=== PATIENT | female | born 1975 | race Caucasian/White ===

== ENCOUNTER 2020-05-04 18:23 | Emergency (ER) | payer OTHER ==
[2020-05-04 20:09] LABS: Absolute Lymphocytes (CBC) 1.6 K/uL (0.7-4.9); Basophils % 1.1 % (0-1.3); Hematocrit 45.3 % (36.0-45.0); Lymphocytes % 23.3 % (15.3-44.8); MPV 10.2 fL (7.6-11.3); RBC Red Blood Cell Count 5.03 M/uL (3.86-4.86)
[2020-05-04 20:12] LABS: Protime INR 0.97
--- NOTE | 2020-05-04 20:20 | RAD REPORT ---
EXAM DESCRIPTION: RAD - Chest Single View - 05/04/2020 7:28 pm CLINICAL HISTORY: PALPITATIONS COMPARISON: None TECHNIQUE: AP portable chest image was obtained 05/04/2020 7:28 pm . FINDINGS: Lungs are clear. Heart and vasculature are normal. No measurable pleural effusion and no p neumothorax. No acute bony abnormality seen. No acute aortic findings suspected. IMPRESSION: No acute cardiopulmonary process.
[2020-05-04 20:39] LABS: ALT/SGPT 28 U/L (12-78); AST/SGOT 19 U/L (15-37); Alkaline Phosphatase 73 U/L (45-117); BUN Blood Urea Nitrogen 10 mg/dL (7-18); Bicarbonate 25 mmol/L (21-32); Bilirubin Direct 0.2 mg/dL (0-0.2); Bilirubin Total 0.9 mg/dL (0.2-1.0); Glucose Level 97 mg/dL (74-106); NT PRO-BNP 48 pg/mL (<125); Potassium 3.6 mmol/L (3.5-5.1); Protein, Total 7.7 g/dL (6.4-8.2); Sodium Level 139 mmol/L (136-145); Troponin (Emerg Dept Use Only) < 0.02 ng/mL (0.0-0.045)
[2020-05-04 21:07] LABS: Urine Blood 2+ (NEG); Urine Glucose NEGATIVE (NEG); Urine Protein TRACE (NEG); Urine pH 5.5 (5.0-7.0)
[2020-05-04] MEDS ORDERED: METOPROLOL TAR 25 MG TAB ONE (21:27)
--- NOTE | 2020-05-04 22:23 | ER ---
Nurse's Notes [facility] Name: Marisa Garza Age: 44 yrs Sex: Female : 1975 Arrival Date: 05/04/2020 Time: 18:29 Bed 2 Private MD: None, None Diagnosis: Hypertension;Palpitations Presentation: 05/04 18:37 Chief complaint: Patient states: Palpitations since night. BP at home 190/120 ll1 today. Coronavirus screen: Proceed with normal triage. Patient denies a cough. Patient denies shortness of breath or difficulty breathing. Patient denies measured and/or subjective temperature greater than 100.4F prior to today's visit. Patient denies travel on a cruise ship or to a country the [facility] currently lists as an affected area. Patient denies contact with known and/or suspected case of COVID-19. Ebola Screen: Patient denies travel to an Ebola-affected area in the 21 days before illness onset. Initial Sepsis Screen: Does the patient meet any 2 criteria? HR > 90 bpm. No. Patient's initial sepsis screen is negative. Risk Assessment: Do you want to hurt yourself or someone else? Patient reports no desire to harm self or others. Onset of symptoms was May 01, 2020. 18:37 Method Of Arrival: Ambulatory ll1 18:37 Acuity: RAY 3 ll1 19:52 Initial Sepsis Screen: Does the patient have a suspected source of infection? No. rv Patient's initial sepsis screen is negative. HYGIENE COORDINATOR: 22:36 LMP 04/2020 rv Historical: - Allergies: 18:39 PENICILLINS; ll1 18:39 Sulfa (Sulfonamide Antibiotics); ll1 - PMHx: 18:39 high blood pressure during ; ll1 - PSHx: 18:39 None; ll1 - Immunization history:: Adult Immunizations up to date. - Social history:: Patient/guardian denies using alcohol, street drugs, tobacco products, Smoking status: unknown. Screenin:52 Abuse screen: Denies threats or abuse. Denies injuries from another. Nutritional rv screening: No deficits noted. Tuberculosis screening: No symptoms or risk factors identified. Fall Risk None identified. Assessment: 19:50 General: Appears comfortable, Behavior is calm, cooperative. Pain: Denies pain. Neuro: rv Level of Consciousness is awake, alert, obeys commands, Oriented to person, place, time, situation. Cardiovascular: Denies chest pain, Patient's skin is warm and dry. Rhythm is sinus tachycardia Chest pain is denied. Respiratory: Airway is patent Respiratory effort is even, unlabored, Respiratory pattern is regular. Derm: Skin is intact. Musculoskeletal: Circulation, motion, and sensation intact. Range of motion: intact in all extremities, Swelling absent. 21:49 Reassessment: Patient appears in no apparent distress at this time. Patient and/or rv family updated on plan of care and expected duration. Pain level reassessed. Patient is alert, oriented x 3, equal unlabored respirations, skin warm/dry/pink. Vital Signs: 18:37 BP 195 / 118; Pulse 118; Resp 18; Temp 100.3; Pulse Ox 97% ; ll1 20:00 BP 180 / 109; Pulse 97; Resp 17; Pulse Ox 99% on R/A; rv 20:14 BP 177 / 113; Pulse 105; Resp 16; Pulse Ox 99% on R/A; rv 20:59 BP 193 / 110; Pulse 101; Resp 14; Pulse Ox 98% ; rv 21:03 Temp 99(O); rv 21:48 BP 177 / 111 LA Sitting; Pulse 95; Resp 16; Pulse Ox 97% on R/A; rv 21:48 Pulse 85; rv 21:55 BP 178 / 109 RA Sitting; Pulse 85; Resp 16; Pulse Ox 98% ; rv 22:36 BP 178 / 101; Pulse 88; Resp 15 S; Pulse Ox 98% on R/A; rv ED Course: 18:29 Patient arrived in ED. dp 18:30 None, None is Private Physician. dp 18:38 Triage completed. ll1 18:39 Arm band placed on Patient placed in an exam room, on a stretcher. ll1 18:42 Papo Ch, AUGUSTO is Primary Nurse. em 19:00 Jose Domínguez MD is Attending Physician. mh7 19:28 XRAY Chest (1 view) In Process Unspecified. EDMS 19:50 Inserted saline lock: 22 gauge in right forearm, using aseptic technique. rv 19:52 Patient has correct armband on for positive identification. Placed in gown. Bed in low rv position. Call light in reach. Side rails up X 1. traffic monitor specialist on. Pulse ox on. NIBP on. 21:21 Primary Nurse role handed off by Papo Ch, AUGUSTO rv 21:21 Mark Morales, AUGUSTO is Primary Nurse. rv 22:21 Robb Willingham MD is Referral Physician. [facility] 22:37 No provider procedures requiring assistance completed. IV discontinued, intact, rv bleeding controlled, No redness/swelling at site. Pressure dressing applied. Administered Medications: 21:20 Drug: Metoprolol 25 mg Route: PO; rv 21:48 Follow up: Pulse 85 bpm; Response: Cardiac rhythm changed rv Outcome: : Discharge ordered by . [facility] 22:37 Discharged to home ambulatory. rv 22:37 Condition: good 22:37 Discharge instructions given to patient, Instructed on discharge instructions, follow up and referral plans. medication usage, Demonstrated understanding of instructions, follow-up care, medications, Prescriptions given X 1. 22:37 Patient left the ED. rv Signatures: Dispatcher [employer] EDMS Papo Ch RN RN Mark Morales RN RN Baldomero Carter Lynsay, RN RN 1 Jose Domínguez MD MD [facility] Corrections: (The following items were deleted from the chart) 19:00 18:37 Chief complaint: Patient states: Palpitation since night. BP at home ll1 190/120. ll1 21:55 21:48 BP 177 / 111; Pulse 95bpm; Resp 16bpm; Pulse Ox 97% RA; rv rv
--- NOTE | 2020-05-04 22:23 | EDPHYS ---
Physician Documentation [facility] Name: Marisa Garza Age: 44 yrs Sex: Female : 1975 Arrival Date: 05/04/2020 Time: 18:29 Bed 2 Private MD: None, None ED Physician Jose Domínguez HPI: 05/04 19:19 This 44 yrs old Female presents to ER via Ambulatory with complaints of High mh7 Blood Pressure. 19:19 The patient has elevated blood pressure and discovered this at home, with a home mh7 device. Onset: The symptoms/episode began/occurred 2 day(s) ago. Modifying factors: The symptoms are aggravated by Nothing, The symptoms are alleviated by Nothing. Associated signs and symptoms: Pertinent positives: Palpitations, Pertinent negatives: chest pain, dizziness, dyspnea, headache, lightheadedness, nausea, visual changes, vomiting, weakness. Severity of symptoms: At its worst the blood pressure was 170 mm Hg, in the emergency department the blood pressure is are actually worse, 195 mm Hg. The patient has experienced similar episodes in the past, a few times. JANITOR: 22:36 LMP 04/2020 rv Historical: - Allergies: 18:39 PENICILLINS; ll1 18:39 Sulfa (Sulfonamide Antibiotics); ll1 - PMHx: 18:39 high blood pressure during ; ll1 - PSHx: 18:39 None; ll1 - Immunization history:: Adult Immunizations up to date. - Social history:: Patient/guardian denies using alcohol, street drugs, tobacco products, Smoking status: unknown. ROS: 19:19 Constitutional: Negative for fever, chills, and weight loss, Eyes: Negative for injury, mh7 pain, redness, and discharge, ENT: Negative for injury, pain, and discharge, Neck: Negative for injury, pain, and swelling, Respiratory: Negative for shortness of breath, cough, wheezing, and pleuritic chest pain, Abdomen/GI: Negative for abdominal pain, nausea, vomiting, diarrhea, and constipation, Back: Negative for injury and pain, : Negative for injury, bleeding, discharge, and swelling, MS/Extremity: Negative for injury and deformity, Skin: Negative for injury, rash, and discoloration, Neuro: Negative for headache, weakness, numbness, tingling, and seizure, Psych: Negative for depression, anxiety, suicide ideation, homicidal ideation, and hallucinations, Allergy/Immunology: Negative for hives, rash, and allergies, Endocrine: Negative for neck swelling, polydipsia, polyuria, polyphagia, and marked weight changes, Hematologic/Lymphatic: Negative for swollen nodes, abnormal bleeding, and unusual bruising. Exam: 19:19 Constitutional: This is a well developed, well nourished patient who is awake, alert, mh7 and in no acute distress. Head/Face: Normocephalic, atraumatic. Eyes: Pupils equal round and reactive to light, extra-ocular motions intact. Lids and lashes normal. Conjunctiva and sclera are non-icteric and not injected. Cornea within normal limits. Periorbital areas with no swelling, redness, or edema. Neck: Trachea midline, no thyromegaly or masses palpated, and no cervical lymphadenopathy. Supple, full range of motion without nuchal rigidity, or vertebral point tenderness. No Meningismus. Chest/axilla: Normal chest wall appearance and motion. Nontender with no deformity. No lesions are appreciated. 19:19 Respiratory: Lungs have equal breath sounds bilaterally, clear to auscultation and percussion. No rales, rhonchi or wheezes noted. No increased work of breathing, no retractions or nasal flaring. Abdomen/GI: Soft, non-tender, with normal bowel sounds. No distension or tympany. No guarding or rebound. No evidence of tenderness throughout. Back: No spinal tenderness. No costovertebral tenderness. Full range of motion. Skin: Warm, dry with normal turgor. Normal color with no rashes, no lesions, and no evidence of cellulitis. MS/ Extremity: Pulses equal, no cyanosis. Neurovascular intact. Full, normal range of motion. Neuro: Awake and alert, GCS 15, oriented to person, place, time, and situation. Cranial nerves II-XII grossly intact. Motor strength 5/5 in all extremities. Sensory grossly intact. Cerebellar exam normal. Normal gait. Psych: Awake, alert, with orientation to person, place and time. Behavior, mood, and affect are within normal limits. 19:19 Cardiovascular: Rate: tachycardic, Rhythm: regular, Pulses: no pulse deficits are appreciated, Heart sounds: normal, normal S1and S2, Edema: is not appreciated, JVD: is not appreciated. 19:54 ECG was reviewed by the Attending Physician. [facility] Vital Signs: 18:37 BP 195 / 118; Pulse 118; Resp 18; Temp 100.3; Pulse Ox 97% ; ll1 20:00 BP 180 / 109; Pulse 97; Resp 17; Pulse Ox 99% on R/A; rv 20:14 BP 177 / 113; Pulse 105; Resp 16; Pulse Ox 99% on R/A; rv 20:59 BP 193 / 110; Pulse 101; Resp 14; Pulse Ox 98% ; rv 21:03 Temp 99(O); rv 21:48 BP 177 / 111 LA Sitting; Pulse 95; Resp 16; Pulse Ox 97% on R/A; rv 21:48 Pulse 85; rv 21:55 BP 178 / 109 RA Sitting; Pulse 85; Resp 16; Pulse Ox 98% ; rv 22:36 BP 178 / 101; Pulse 88; Resp 15 S; Pulse Ox 98% on R/A; rv MDM: 19:14 Patient medically screened. [facility] 22:18 Differential diagnosis: hypertensive crisis, Malignant HTN, Hypertension, Palpitations, [facility] Hyperthyroidism, Anxiety. Data reviewed: vital signs, nurses notes, lab test result(s), cardiac enzymes, CBC, electrolytes, Flu: urinalysis, EKG, radiologic studies, plain films. Data interpreted: security monitor: rate is 85 beats/min, rhythm is normal sinus rhythm, regular, Interpretation: normal rate, normal rhythm, Pulse oximetry: on room air is 99 %. Interpretation: normal. Counseling: I had a detailed discussion with the patient and/or guardian regarding: the historical points, exam findings, and any diagnostic results supporting the discharge/admit diagnosis, the presence of at least one elevated blood pressure reading (>120/80) during this emergency department visit, lab results, radiology results. Response to treatment: the patient's symptoms have markedly improved after treatment. Refusal of service: The patient/guardian displays adequate decision making capability and despite a detailed discussion of alternatives, benefits, risks, and consequences refuses: CT Scan. 05/04 19:15 Order name: Basic Metabolic Panel [facility] 05/04 19:15 Order name: CBC with Diff; Complete Time: 20:29 [facility] 05/04 19:15 Order name: LFT's; Complete Time: 20:47 [facility] 05/04 19:15 Order name: Magnesium; Complete Time: 20:47 7 05/04 19:15 Order name: NT PRO-BNP; Complete Time: 20:47 7 05/04 19:15 Order name: PT-INR; Complete Time: 20:29 7 05/04 19:15 Order name: Troponin (emerg Dept Use Only); Complete Time: 20:47 7 05/04 19:15 Order name: TSH; Complete Time: 20:47 7 05/04 19:15 Order name: Test, Serum; Complete Time: 20:47 7 05/04 19:15 Order name: Influenza Screen (a \T\ B); Complete Time: 20:29 7 05/04 19:16 Order name: Basic Metabolic Panel; Complete Time: 20:47 EDMS 06 20:19 Order name: Urine Dipstick--Ancillary (enter results); Complete Time: 21:51 mw2 06 20:19 Order name: Urine --Ancillary (enter results); Complete Time: 21:51 2 06 21:13 Order name: D-Dimer; Complete Time: 21:51 rv 06 19:15 Order name: XRAY Chest (1 view); Complete Time: 20:29 7 05/04 19:15 Order name: EKG; Complete Time: 19:16 [facility] 05/04 19:15 Order name: Cardiac monitoring; Complete Time: 19:50 7 05/04 19:15 Order name: EKG - Nurse/Tech; Complete Time: 19:50 [facility] 05/04 19:15 Order name: IV Saline Lock; Complete Time: 19:50 [facility] 05/04 19:15 Order name: Labs collected and sent; Complete Time: 19:50 7 05/04 19:15 Order name: O2 Per Protocol; Complete Time: 19:50 7 05/04 19:15 Order name: O2 Sat Monitoring; Complete Time: 19:50 [facility] 05/04 19:15 Order name: Urine Dipstick-Ancillary (obtain specimen); Complete Time: 20:32 mh7 EC:54 Rate is 105 beats/min. Rhythm is regular, Sinus tachycardia. QRS is negative in leads 7 III, aVF, V1, V2, V3. VT interval is normal. QRS interval is normal. QT interval is normal. No Q waves. T waves are Normal. No ST changes noted. Clinical impression: Sinus tachycardia. Administered Medications: 21:20 Drug: Metoprolol 25 mg Route: PO; rv 21:48 Follow up: Pulse 85 bpm; Response: Cardiac rhythm changed rv Disposition: 05/04/20 22:22 Discharged to Home. Impression: Hypertension, Palpitations. - Condition is Stable. - Discharge Instructions: Hypertension, Palpitations, [id number]. - Prescriptions for Metoprolol Tartrate 25 mg Oral Tablet - take 1 tablet by ORAL route 2 times per day with a meal; 20 tablet. - Medication Reconciliation Form, Thank You Letter, Antibiotic Education, Prescription Opioid Use form. - Follow up: Robb Willingham MD; When: 1 - 2 days; Reason: Worsening of condition, Recheck today's complaints. - Problem is new. - Symptoms have improved. Signatures: Dispatcher [employer] EDMS Mark Morales RN RN rv Fran Bagley RN RN 1 Jose Domínguez MD MD 7 Corrections: (The following items were deleted from the chart) 19:21 19:18 This 44 yrs old Female presents to ER via Ambulatory with complaints of mh7 Palpitations. mh7 22:37 22:22 05/04/2020 22:22 Discharged to Home. Impression: Hypertension; Palpitations. rv Condition is Stable. Forms are Medication Reconciliation Form, Thank You Letter, Antibiotic Education, Prescription Opioid Use. Follow up: Robb Willingham; When: 1 - 2 days; Reason: Worsening of condition, Recheck today's complaints. Problem is new. Symptoms have improved. 7
[2020-05-04 23:07] VITALS: TEMP 99
[2020-05-04 23:10] VITALS: O2SAT 98
[2020-05-04 23:11] VITALS: BP 178/101
--- NOTE | 2020-05-06 07:48 | EKG ---
Test Date: 2020-05-04 Test Time: 19:45:57 Engine Head Repairer: RV MEASUREMENT RESULTS: Intervals: Rate: 103 ND: 168 QRSD: 82 QT: 350 QTc: 458 [place]: P: 42 ND: 168 QRS: -31 T: 36 INTERPRETIVE STATEMENTS: Sinus tachycardia Left axis deviation Abnormal ECG No previous ECG available for comparison Electronically Signed On 05-06-20 07:44:51 CDT by Rober Billy
== END 2020-05-04 22:37 | disposition home or self-care (01) ==
LOC: ER 18:23
DX: I10 Essential (primary) hypertension (principal); Z88.0 Allergy status to penicillin; Z88.2 Allergy status to sulfonamides
CPT/HCPCS: 36415; 71045; 80048; 80076; 81003; 81025; 83735; 83880; 84443; 84484; 84703; 85025; 85379; 85610; 87804; 93005; 99284